=== PATIENT | female | born 1975 | race Caucasian/White ===

== ENCOUNTER 2017-05-15 05:44 | Day surgery (SDC) | payer OTHER ==
[2017-05-13 11:44] LABS: BASOPHILS # (AUTO) 0.03 x10^3/uL (0-0.1); BASOPHILS % (AUTO) 1 % (0-1); EOSINOPHILS # (AUTO) 0.05 x10^3/uL (0-0.4); EOSINOPHILS % (AUTO) 1 % (1-7); LYMPHOCYTES # (AUTO) 2.04 x10^3/uL (1-3.4); LYMPHOCYTES % (AUTO) 28 % (22-44); MD NO; MEAN CORPUSCULAR HEMOGLOBIN 28.7 pg (27.0-34.8); MEAN CORPUSCULAR HGB CONC 32.8 g/dL (32.4-35.8); MEAN CORPUSCULAR VOLUME 87.6 fL (80-100); MEAN PLATELET VOLUME 7.6 fL (7.4-10.4); MONOCYTES # (AUTO) 0.46 x10^3/uL (0.2-0.8); MONOCYTES % (AUTO) 6 % (2-9); NEUTROPHILS # (AUTO) 4.74 x10^3/uL (1.8-6.8); NEUTROPHILS % (AUTO) 65 % (42-75); PLATELET COUNT 268 x10^3/uL (130-400); RED BLOOD COUNT 4.79 x10^6/uL (3.82-5.3); RED CELL DISTRIBUTION WIDTH 13.4 % (9.6-15.2)
[2017-05-13 11:52] LABS: MICROSCOPIC AUTO
[2017-05-13 11:56] LABS: CULTURE INDICATED? YES
[2017-05-13 11:57] LABS: ANION GAP 7 mmol/L (5-15); CALCIUM 8.4 mg/dL (8.5-10.1); CHLORIDE 110 mmol/L (98-107); CREATININE 0.73 mg/dL (0.55-1.02)
[~2017-05-15] VITALS: Ht 172.7 cm; Wt 73.5 kg
[~2017-05-15 05:44] MED LIST: ESCI10TA PO; LEVO50TA5 PO; LEVOTHY PO; LIOT5TAB3 PO; MULT-516 PO; NORE1TAB34 PO; [UNRECOGNIZED DRUG - OTHER] PO
[2017-05-15 06:30] VITALS: BP 117/79
[2017-05-15] MEDS ORDERED: LACTATED RINGERS 1,000 ML IV SCH (06:36)
[2017-05-15 06:47] LABS: HCG UR SG 1.019 (1.003-1.030)
[2017-05-15] MEDS ORDERED: PROPOFOL 10 MG/ML, 20ML ONE (06:59)
[2017-05-15] MEDS ORDERED: MIDAZOLAM 1 MG/ML, 2ML ONE (06:59)
[2017-05-15] MEDS ORDERED: DEXAMETHASONE 4 MG/ML, 1ML ONE ×2 (06:59)
[2017-05-15] MEDS ORDERED: ROCURONIUM 10 MG/ML,10ML ONE ×2 (06:59)
[2017-05-15] MEDS ORDERED: FENTANYL PF 250 MCG/5ML ONE (06:59)
[2017-05-15] MEDS ORDERED: ACETAMINOPHEN 500 MG TABLET PO ONE (07:00)
[2017-05-15] MEDS ORDERED: LIDOCAINE 1%, 2ML SQ PRN (07:00)
[2017-05-15] MEDS ORDERED: GABAPENTIN 300 MG CAPSULE PO SCH (07:00)
[2017-05-15] MEDS ORDERED: FLUORESCEIN SODIUM 500 MG/5 ML ONE (07:06)
[2017-05-15] MEDS ORDERED: EPINEPHRINE 1 MG/ML, 1ML ONE (07:06)
[2017-05-15] MEDS ORDERED: INDIGO CARMINE 0.8%, 5ML ONE (07:06)
[2017-05-15] MEDS ORDERED: ONDANSETRON 2MG/ML, 2ML IVPush PRN (07:30)
[2017-05-15] MEDS ORDERED: FENTANYL PF 100 MCG/2ML IV PRN (07:30)
[2017-05-15] MEDS ORDERED: OXYcodone 5 MG/5 ML ORAL.SOL UDC PO PRN (07:30)
[2017-05-15] MEDS ORDERED: HYDROmorphone 1 MG/ML, 1ML IV PRN (07:30)
[2017-05-15] MEDS ORDERED: hydrALAzine 20 MG/ML, 1ML IV PRN (07:30)
[2017-05-15] MEDS ORDERED: MEPERIDINE/PF 25MG/0.5ML IVPush PRN (07:30)
[2017-05-15] MEDS ORDERED: LABETALOL 5MG/ML, 20ML IV PRN (07:30)
[2017-05-15] MEDS ORDERED: PROMETHAZINE 25 MG/ML, 1ML IV PRN (07:30)
[2017-05-15] MEDS ORDERED: ACETAMINOPHEN 325 MG TABLET PO PRN (07:30)
[2017-05-15] MEDS: BUPIVACAINE/PF 0.25% ONE ×2 (08:00→08:02)
[2017-05-15] MEDS ORDERED: ONDANSETRON 2MG/ML, 2ML ONE (08:23)
[2017-05-15] MEDS ORDERED: NEOSTIGMINE 1 MG/ML, 10ML ONE (08:26)
[2017-05-15] MEDS ORDERED: GLYCOPYRROLATE 0.2MG/1ML, 5ML ONE (08:26)
[2017-05-15] MEDS ORDERED: FENTANYL PF 100 MCG/2ML ONE (09:23)
[2017-05-15] MEDS ORDERED: OXYcodone 5 MG/5 ML ORAL.SOL UDC ONE (09:24)
[2017-05-15] MEDS ORDERED: KETOROLAC 30 MG/1 ML ONE (12:48)
[2017-05-15] MEDS ORDERED: KETOROLAC 30 MG/1 ML IVPush PRN (13:00)
== END 2017-05-15 13:10 ==
LOC: OUT 05:44
PROVIDERS: ATTEND Obstetrics & Gynecology
DX: N92.0 Excessive and frequent menstruation with regular cycle (principal); D25.9 Leiomyoma of uterus, unspecified; Z98.890 Other specified postprocedural states; E03.9 Hypothyroidism, unspecified; K44.9 Diaphragmatic hernia without obstruction or gangrene
CPT/HCPCS: 36415; 58552; 80048; 81001; 81025; 85025; 87077; 87086; 87186; 88307; J0171; J1100; J1885; J2250; J2405; J2704; J2710; J3010; J3490; J7120